=== PATIENT | male | born 1955 | race Caucasian/White ===

== ENCOUNTER 2016-08-22 20:12 | Inpatient (IN) | payer MEDICAID, MEDICARE ==
[~2016-08-22] VITALS: Ht 180.3 cm; Wt 99.4 kg
[2016-08-22] MEDS ORDERED: OPTIRAY 350 100 ML VIAL HMH IV ONE (20:13)
[2016-08-22] MEDS ORDERED: DILAUDID 1 MG/ML AMP ONE ×2 (21:21→22:18)
[2016-08-22] MEDS ORDERED: DEXTROSE 50% SYRINGE 50 ML IV PRN (22:35)
[2016-08-22] MEDS ORDERED: BISACODYL EC 5 MG TAB PO PRN (22:35)
[2016-08-22] MEDS ORDERED: SALINE FLUSH 10 ML FLUSH PRN (22:35)
[2016-08-22] MEDS ORDERED: ALU/MAG/SIM 30 ML UDC PO PRN (22:35)
[2016-08-22] MEDS ORDERED: GLUCAGON 1 MG VIAL IM PRN (22:35)
[2016-08-22] MEDS ORDERED: MAG HYDROX 30 ML UDC PO PRN (22:35)
[2016-08-22] MEDS ORDERED: BISACODYL 10 MG SUPP RECTAL PRN (22:35)
[2016-08-22] MEDS ORDERED: ACETAMINOPHEN 325 MG TAB PO PRN (22:35)
[2016-08-23] VITALS (9 sets, daily range): BP systolic 130–167; RESP 16–20; TEMP 97.4–98.6; BMI 32.2
[2016-08-23] MEDS ORDERED: DILAUDID 1 MG/ML AMP IV PRN (00:15)
[2016-08-23] MEDS: NITROGLYCERIN SL 0.4 MG TAB SL PRN ×3 (00:24→18:01)
[2016-08-23] MEDS ORDERED: PHARMACY TO DOSE LEVAQUIN IV SCH (00:45)
[2016-08-23] MEDS ORDERED: LEVOFLOXACIN 750 MG/150 ML 150 ML IV ONE (01:00)
[2016-08-23] MEDS: SODIUM CHLORIDE 0.9% FLUSH BAG 500 ML IV SCH (01:22)
[2016-08-23] MEDS: NEB-ATROVENT INH SCH ×6 (02:50→22:51)
[2016-08-23] MEDS: NEB-ALBUTEROL 2.5 MG/3 ML INH SCH ×6 (02:50→22:51)
[2016-08-23] MEDS ORDERED: SODIUM CHLORIDE 0.9% 1,000 ML IV SCH (06:10)
[2016-08-23] MEDS ORDERED: hePARIN 1,000 UNITS/ML (PORCINE) 10 ML IV PRN (06:10)
[2016-08-23] MEDS ORDERED: DEXTROSE 50% SYRINGE 50 ML IV ONE (07:15)
[2016-08-23] MEDS: SALINE FLUSH 10 ML FLUSH SCH ×2 (08:12→20:15)
[2016-08-23] MEDS: FAMOTIDINE 20 MG INJ IV SCH ×2 (08:12→20:16)
[2016-08-23] MEDS: ASPIRIN 81 MG CHEW TAB PO SCH (08:12)
[2016-08-23] MEDS ORDERED: ENOXAPARIN 30 MG/0.3 ML SYR SUBQ SCH (09:00)
[2016-08-23] MEDS: Furosemide 40 MG TAB PO SCH (17:08)
[2016-08-24] VITALS (9 sets, daily range): BP systolic 137–170; RESP 18–20; TEMP 97.6–98.5; Ht 180.3 cm; Wt 99.4 kg
[2016-08-24] MEDS: NEB-ATROVENT INH SCH ×6 (02:59→23:21)
[2016-08-24] MEDS: NEB-ALBUTEROL 2.5 MG/3 ML INH SCH ×6 (03:00→23:21)
[2016-08-24] MEDS: SODIUM CHLORIDE 0.9% FLUSH BAG 500 ML IV SCH (05:22)
[2016-08-24] MEDS: FAMOTIDINE 20 MG INJ IV SCH (07:41)
[2016-08-24] MEDS: SALINE FLUSH 10 ML FLUSH SCH ×2 (07:47→20:22)
[2016-08-24] MEDS: NITROGLYCERIN SL 0.4 MG TAB SL PRN (08:36)
[2016-08-24] MEDS: Furosemide 40 MG TAB PO SCH (11:54)
[2016-08-24] MEDS: ASPIRIN 81 MG CHEW TAB PO SCH (11:55)
[2016-08-24] MEDS: LISINOPRIL 20 MG TAB PO SCH (14:35)
[2016-08-24] MEDS ORDERED: Atorvastatin 40 MG TAB PO SCH (21:00)
[2016-08-25] MEDS: NEB-ALBUTEROL 2.5 MG/3 ML INH SCH ×3 (02:08→11:00)
[2016-08-25] MEDS: NEB-ATROVENT INH SCH ×3 (02:08→11:00)
[2016-08-25 03:45] VITALS: BP_SYST 138; RESP 20; TEMP 97.9
[2016-08-25] MEDS: SODIUM CHLORIDE 0.9% FLUSH BAG 500 ML IV SCH (05:06)
[2016-08-25] MEDS ORDERED: PANTOPRAZOLE 40 MG TAB PO SCH (07:00)
[2016-08-25] MEDS: SALINE FLUSH 10 ML FLUSH SCH (07:51)
[2016-08-25 07:55] VITALS: BP_SYST 140; RESP 18; TEMP 98.5
[2016-08-25] MEDS ORDERED: LEVOFLOXACIN 500 MG/100 ML 100 ML IV SCH (09:00)
[2016-08-25 10:13] VITALS: BP_SYST 135; RESP 18; TEMP 97.8
[2016-08-25 13:03] VITALS: BP_SYST 135; RESP 18; TEMP 98.5
[2016-08-25 14:36] VITALS: BP_SYST 146; RESP 16; TEMP 98
[2016-08-25] MEDS: ASPIRIN 81 MG CHEW TAB PO SCH (14:45)
[2016-08-25] MEDS: Furosemide 40 MG TAB PO SCH (14:45)
[2016-08-25] MEDS: LISINOPRIL 20 MG TAB PO SCH (14:45)
== END 2016-08-25 16:05 | disposition home or self-care (01) | DRG 640 ==
LOC: ENRESERVDT → ENRESERVTM → ER 20:12 → EMR 22:32 → ENPENDDIS 22:32 → 4THE 23:44
PROVIDERS: ADMIT Internal Medicine; ATTEND Internal Medicine
PROC: 5A1D60Z (ICD-10-PCS; principal; 2016-08-23)
DX: E87.70 Fluid overload, unspecified (principal); N18.6 End stage renal disease; I13.2 Hypertensive heart and chronic kidney disease with heart failure and with stage 5 chronic kidney disease, or end stage renal disease; I50.40 Unspecified combined systolic (congestive) and diastolic (congestive) heart failure; E11.22 Type 2 diabetes mellitus with diabetic chronic kidney disease; E11.65 Type 2 diabetes mellitus with hyperglycemia; Z99.2 Dependence on renal dialysis; E87.2 Acidosis; E78.5 Hyperlipidemia, unspecified; E66.9 Obesity, unspecified; Z68.32 Body mass index [BMI] 32.0-32.9, adult; E87.5 Hyperkalemia; D64.9 Anemia, unspecified; I27.2 Other secondary pulmonary hypertension; E87.1 Hypo-osmolality and hyponatremia; Z86.718 Personal history of other venous thrombosis and embolism
CPT/HCPCS: 36415; 71010; 71260; 80048; 80053; 80061; 82550; 82553; 82947; 83036; 83605; 83735; 83880; 84439; 84443; 84484; 85025; 85610; 85652; 85730; 86141; 87040; 93005; 93306; 94640; 94799; 96374; 99223; 99232; 99239